=== PATIENT | male | born 1985 | race Two or more races ===

== ENCOUNTER 2020-07-11 08:47 | Inpatient (IN) | payer OTHER ==
[~2020-07-11] VITALS: Ht 170.2 cm; Wt 67.7 kg
[2020-07-11] MEDS ORDERED: ONDANSETRON HCL 4 MG TABLET PO ONE (09:00)
[2020-07-11 09:19] LABS: BASOPHILS % (AUTO) 0.4 % (0.0-2.0); EOSINOPHILS % (AUTO) 0.7 % (1.0-6.0); HEMATOCRIT 42.1 % (41-53); HEMOGLOBIN 14.2 g/dL (13.5-17.5); LYMPHOCYTES # (AUTO) 1.1 K/uL (1.0-4.8); LYMPHOCYTES % (AUTO) 14.8 % (22.0-44.0); MEAN CORPUSCULAR HEMOGLOBIN 29.7 pg (26.0-34.0); MEAN CORPUSCULAR HGB CONC 33.6 G/dL (31.0-37.0); MEAN CORPUSCULAR VOLUME 88 fL (80-100); MONOCYTES # (AUTO) 0.3 K/uL (0.1-1.0); MONOCYTES % (AUTO) 4.6 % (2.0-9.0); NEUTROPHILS # (AUTO) 5.9 K/uL (1.8-7.7); NEUTROPHILS % (AUTO) 79.5 % (40.0-70.0); PLATELET COUNT (AUTO) 261 K/uL (150-450); RED BLOOD CELL COUNT(AUTO) 4.77 MIL/uL (4.50-5.90); RED CELL DISTRIBUTION WIDTH 13.3 % (11.5-14.5)
[2020-07-11 09:32] LABS: ANION GAP 5 mmol/L (8-16); CALCIUM, TOTAL 8.9 mg/dL (8.8-10.5); CARBON DIOXIDE 31 mmol/L (22-29); CHLORIDE 105 mmol/L (98-107); CREATININE 0.92 mg/dL (0.60-1.30); GLOMERULAR FILTR. RATE CALC > 60 mL/min (>60); GLUCOSE,RANDOM 102 mg/dL (70-110); POTASSIUM 4.5 mmol/L (3.5-5.1); SODIUM SERUM 141 mmol/L (136-145); UREA NITROGEN, BLOOD 13 mg/dL (7-18)
[2020-07-11 09:38] LABS: ALANINE AMINOTRANSFERASE 28 U/L (12-78); ALBUMIN 3.6 g/dL (3.4-5.0); ALKALINE PHOSPHATASE 73 U/L (46-116); ASPARTATE AMINOTRANSFERASE 12 U/L (15-37); BILIRUBIN,TOTAL 0.2 mg/dL (0.1-1.0); TOTAL PROTEIN, SERUM 6.9 g/dL (6.4-8.2)
[2020-07-11 12:27] LABS: AMPHET/METH SCREEN,URINE POSITIVE (NEGATIVE); BARBITURATE SCREEN, URINE NEGATIVE (NEGATIVE); BENZODIAZEPINES SCREEN,URINE NEGATIVE (NEGATIVE); CANNABINOID SCREEN,URINE NEGATIVE (NEGATIVE); COCAINE SCREEN,URINE POSITIVE (NEGATIVE); METHADONE SCREEN, URINE NEGATIVE (NEGATIVE); OPIATE SCREEN,URINE POSITIVE (NEGATIVE)
[2020-07-11 12:36] LABS: PHENCYCLIDINE SCREEN,URINE NEGATIVE (NEGATIVE)
[2020-07-11] MEDS ORDERED: LOPERAMIDE HCL 2 MG/15 ML SUSPENSION UDCUP PO PRN (14:15)
[2020-07-11] MEDS ORDERED: BACLOFEN 10 MG TABLET PO PRN (14:15)
[2020-07-11] MEDS ORDERED: LORazepam 1 MG TABLET PO PRN (14:15)
[2020-07-11] MEDS ORDERED: MAG HYDROX/AL HYDROX/SIMETH ES 30 ML SUSPENSION UDCUP PO PRN ×2 (14:15)
[2020-07-11] MEDS ORDERED: IBUPROFEN 600 MG TABLET PO PRN ×2 (14:15)
[2020-07-11] MEDS ORDERED: CloNIDine HCL 0.1 MG TABLET PO PRN (14:15)
[2020-07-11] MEDS ORDERED: TraZODone HCL 50 MG TABLET PO PRN (14:15)
[2020-07-11] MEDS ORDERED: PROMETHAZINE HCL 25 MG TABLET PO PRN (14:15)
[2020-07-11] MEDS ORDERED: HydrOXYzine PAMOATE 50 MG CAPSULE PO PRN ×2 (14:15)
[2020-07-11] MEDS ORDERED: DICYCLOMINE HCL 10 MG CAPSULE PO PRN (14:15)
[2020-07-11] MEDS: SODIUM CHLORIDE 0.45% 1,000 ML IV SCH (14:54)
[2020-07-11 14:58] VITALS: BP 134/84
[2020-07-11 15:00] VITALS: BP 134/84
[2020-07-11] MEDS: ACETAMINOPHEN 325 MG TABLET PO PRN ×2 (15:03→23:43)
[2020-07-11 16:00] VITALS: BP 114/57
[2020-07-11 17:00] VITALS: BP 127/76
[2020-07-11] MEDS: CloNIDine HCL 0.1 MG TABLET PO SCH ×2 (17:13→23:37)
[2020-07-11 18:36] VITALS: BP 107/52
[2020-07-11 20:00] VITALS: BP 118/72
[2020-07-12] VITALS (7 sets, daily range): BP systolic 108–126; BP diastolic 63–85
[2020-07-12] MEDS: SODIUM CHLORIDE 0.45% 1,000 ML IV SCH ×2 (04:17→18:08)
[2020-07-12] MEDS: CloNIDine HCL 0.1 MG TABLET PO SCH ×3 (12:02→22:31)
[2020-07-13] MEDS: CloNIDine HCL 0.1 MG TABLET PO SCH ×4 (05:59→22:27)
[2020-07-13 06:02] VITALS: BP 96/61
[2020-07-13 08:00] VITALS: BP 105/65
[2020-07-13] MEDS: SODIUM CHLORIDE 0.45% 1,000 ML IV SCH ×2 (08:46→22:28)
[2020-07-13 12:00] VITALS: BP 110/58
[2020-07-13 17:30] VITALS: BP 103/61
[2020-07-13 20:00] VITALS: BP 115/63
[2020-07-14 05:43] VITALS: BP 117/73
[2020-07-14] MEDS: CloNIDine HCL 0.1 MG TABLET PO SCH ×2 (06:02→12:16)
[2020-07-14 07:58] VITALS: BP 111/60
[2020-07-14 12:16] VITALS: BP 106/68
[2020-07-14 15:52] VITALS: BP 101/66
== END 2020-07-14 15:45 | DRG 897 ==
LOC: EMS 08:47 → 6S 09:48 → UNDOADMIN 09:48 → 6S 10:25
PROVIDERS: ADMIT Hospitalist; ATTEND Hospitalist
DX: F11.23 Opioid dependence with withdrawal (principal); F17.200 Nicotine dependence, unspecified, uncomplicated; Z72.89 Other problems related to lifestyle
CPT/HCPCS: 80307; G0480; Q0162